=== PATIENT | male | born 2000 | race Hispanic/Latino ===

== ENCOUNTER 2021-11-03 20:35 | Emergency (ER) | payer SELFPAY ==
--- NOTE | ~2021-11-03 | CT_ITS ---
EXAMINATION: CT abdomen pelvis w con DATE: 11/03/2021 22:02 INDICATION: Mass and pain in the left inguinal region. TECHNIQUE: Computed tomography (CT) of the abdomen and pelvis was performed with 100 cc Omnipaque 350 intravenous contrast. The dose-length product was 619.70 mGy-cm. Automated exposure control and iter ative reconstruction technique were employed. COMPARISON: None. FINDINGS: Lung bases are unremarkable. Heart size normal. No significant pleural or pericardial effus ion. The liver, spleen, pancreas, adrenal glands and kidneys are unremarkable. No hydronephrosis or renal stones. Gallbladder is present. Nonobstructive bowel gas pattern. There is soft tissue in the left in guinal canal, concerning for undescended testicle with possible surrounding inflammation. There is a tiny fat-containing umbilical hernia. There are mildly prominent mesenteric lymph nodes, likely react jayson. IMPRESSION: 1. Soft tissue in the left inguinal canal with mild inflammation of the surrounding fat, concerning f or undescended testicle with possible associated inflammatory change. Reviewed, dictated and finalized at location A. TRIC METER SETTER IMPRESSION: 1. Soft tissue in the left inguinal canal with mild inflammation of the surroun ding fat, concerning for undescended testicle with possible associated inflamma tory change.
--- NOTE | ~2021-11-03 | US_ITS ---
US scrotum doppler INDICATION: Possible undescended left testicle TECHNIQUE: Testicular sonogram utilizing grayscale and color Doppler FINDINGS: The left testicle appears to be in the left inguinal canal. There is Doppler signal in the left testicle. 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 Right testicle measures 6.1 x 3.8 x 2.9 cm. The left testicle appears small measuring 2.7 x 2.3 x 1.9 cm. The right epididymis is unremarkable. Left epididymis not definitely visualized. There is no varicocele or hydrocele. IMPRESSION: 1. Probable undescended left testicle in the left inguinal canal. Reviewed, dictated and finalized at location A. OW TILE PARTITION ERECTOR
[2021-11-03 20:37] VITALS: BP 155/96; PULSE 102; RESP 16; TEMP 36.2; O2SAT 99
--- NOTE | 2021-11-03 21:02 | ED.ABDPAIN ---
HPI - Abdominal Pain General Chief Complaint: Abdominal Pain <Dann Helms MD - Last Filed: 11/04/21 12:04> Stated Complaint: LLQ pain <Dann Helms MD - Last Filed: 11/04/21 12:04> Time Seen by Provider: 11/03/21 20:45 <Dann Helms MD - Last Filed: 11/04/21 12:04> Source: patient <Dann Helms MD - Last Filed: 11/04/21 12:04> History of Present Illness HPI narrative: Patient presents with left lower quadrant abdominal pain has been present for approximately 8 to 10 days today it is more severe and has been associated with nausea and vomiting so he came to the ER for evaluation. Ports he feels a firm nodule in his groin where the pain is. Denies any diarrhea or fevers denies any prior abdominal surgeries denies any past medical history. <Dann Helms MD - Last Filed: 11/04/21 12:04> Related Data Allergies/Adverse Reactions: Allergies Allergy/AdvReac Type Severity Reaction Status Date / Time No Known Allergies Allergy Verified 11/03/21 21:23 <Dann Helms MD - Last Filed: 11/04/21 12:04> Review of Systems Review of Systems: CONSTITUTIONAL: Denies fever, chills, or sweats. EYES: Denies visual changes, redness, or discharge. ENT: Denies rhinorrhea, congestion, sore throat, or otalgia. CARDIOVASCULAR: Denies chest pain, palpitations, or edema. RESPIRATORY: Denies cough or dyspnea. GASTROINTESTINAL: Reports abdominal pain nausea and vomiting GENITOURINARY: Denies dysuria or hematuria. SKIN: Denies rash or itching. MUSCULOSKELETAL: Denies back pain, joint pain, or myalgia. NEUROLOGIC: Denies headache, numbness, dizziness, or weakness. PSYCHIATRIC: Denies anxiety or depression. <Dann Helms MD - Last Filed: 11/04/21 12:04> All systems reviewed & are unremarkable except as noted in HPI and below <Dann Helms MD - Last Filed: 11/04/21 12:04> PMFSH Past Medical History Medical History: Medical History (Updated 11/04/21 @ 02:21 by Richi Palomo MD) Patient denies medical problems <Dann Helms MD - Last Filed: 11/04/21 12:04> Surgical History Surgical History: Surgical History (Updated 11/03/21 @ 21:04 by Dann Helms MD) No pertinent past surgical history <Dann Helms MD - Last Filed: 11/04/21 12:04> Exam Narrative: GENERAL: Well-appearing, well-nourished, and in no acute distress. HEAD: Normocephalic, atraumatic. EYES: PERRLA and EOMI. ENT: Nares clear, no rhinorrhea or epistaxis. Mucous membranes moist. NECK: Supple. No masses. No JVD ABDOMEN: Soft, nontender, nondistended, normal active bowel sounds. : Tender nodule in his inguinal area nonreducible EXTREMITIES: Normal range of motion. No edema. SKIN: Warm, dry, no rash. NEURO: No focal deficits. Alert and oriented x3. PSYCH: Normal mood and affect. <Dann Helms MD - Last Filed: 11/04/21 12:04> Course Reevaluation(s) Reevaluation #1: Patient reports history of undescended testicle on the left side and he is never felt to testicles inside his scrotum in the entirety of his life. Ultrasound shows no evidence of torsion. Discussed case with urology, Dr. Crooks, who recommends patient be placed on oral antibiotics as well as oral anti-inflammatories. He also recommend adding on a urine culture. <Richi Palomo MD - Last Filed: 11/04/21 02:23> Date: 11/04/21 <Richi Palomo MD - Last Filed: 11/04/21 02:23> Time: 02:15 <Richi Palomo MD - Last Filed: 11/04/21 02:23> Consultations Consultation #1: Patient signed out to Dr. Palomo pending CT imaging for final disposition <Dann Helms MD - Last Filed: 11/04/21 12:04> Date: 11/03/21 <Dann Helms MD - Last Filed: 11/04/21 12:04> Time: 21:52 <Dann Helms MD - Last Filed: 11/04/21 12:04> Vital Signs Vital signs: Vital Signs Temperature 36.2 C L 11/03/21 20:37 Pulse Rate 102 H 11/03/21 20:37 Respiratory Rate
[2021-11-03] MEDS: SODIUM CHLORIDE 0.9% IV 1,000 ML 999 ML IV CONT (21:24)
[2021-11-03] MEDS: MORPHINE SULFATE (*CRX) 4 MG/ML INJ IV PUSH (21:25)
[2021-11-03] MEDS: ONDANSETRON INJ 4 MG/2 ML VIAL IV PUSH (21:26)
[2021-11-03 21:28] LABS: Basophils Percent Auto 0.4 % (0.2-1.2); Eosinophils Absolute Auto 0.4 K/mm3 (0-0.3); Eosinophils Percent Auto 4.2 % (0-4.4); Hematocrit 43.1 % (42.0-52.0); Hemoglobin 14.7 g/dL (14.0-18.0); Immature Granulocyte Absolute 0.06 K/mm3 (0.00-0.031); Immature Granulocyte Percent A 0.6 % (0-0.5); Lymphocytes Absolute Auto 3.27 K/mm3 (0.9-3.2); Lymphocytes Percent Auto 31.5 % (18.3-44.2); Mean Corpuscular HGB Conc 34.1 g/dl (32-36); Mean Corpuscular Hemoglobin 31.9 pg (26-34); Mean Corpuscular Volume 93.5 fl (80-100); Mean Platelet Volume 10.2 fl (7.4-10.4); Monocytes Absolute Auto 0.9 K/mm3 (0.1-0.6); Monocytes Percent Auto 8.6 % (2.6-8.5); Neutrophils Absolute Auto 5.7 K/mm3 (1.3-6.7); Neutrophils Percent Auto 54.7 % (45.5-73.1); Platelet Count Result 298 k/mm3 (150-375); Red Blood Count 4.61 M/mm3 (4.6-6.20); Red Cell Distribution Width 12.5 % (11.5-14.5); White Blood Count 10.4 K/mm3 (4.5-10.0)
[2021-11-03 21:38] LABS: Lactic Acid Reflex 1.1 mmol/L (0.7-2.1)
[2021-11-03 21:42] LABS: Alanine Aminotransferase 40 U/L (4-50); Albumin Level 4.9 g/dL (3.5-5.1); Alkaline Phosphatase 96 U/L (38-126); Anion Gap 11 mmol/L (8-16); Aspartate Amino Transferase 39 U/L (17-59); Bilirubin,Total 0.3 mg/dL (0.2-1.3); Blood Urea Nitrogen 17 mg/dL (9-20); Carbon Dioxide 24 mmol/L (22-30); Chloride 106 mmol/L (98-107); Estimated CRCL calculation 85 ml/min; Estimated Glomerular Filt Rate > 60; Glucose 103 mg/dL (65-110); Lipase 124 U/L (23-300); Potassium 3.6 mmol/L (3.4-5.0); Sodium 141 mmol/L (137-145)
[2021-11-03 21:48] LABS: Add Urine Microscopic? YES; Appearance Urine Clear (Clear); Bilirubin Urine Negative (Negative); Blood Urine Negative (Negative); Color Urine Colorless (Yellow); Glucose Urine UA Negative (Negative); Ketones Urine Negative (Negative); Leukocyte Esterase Ur 2+ LEU/UL (Negative); Nitrate Urine Negative (Negative); Protein Urine Negative (Negative); RBC Urine 0-2 /hpf (0-2); Specific Grav Ur 1.006 (1.001-1.035); Urobilinogen Urine Negative mg/dL (<2.0); WBC Urine 31-50 /hpf
[2021-11-03 23:00] VITALS: BP 130/75; PULSE 70; RESP 18; O2SAT 99
[2021-11-04 01:16] VITALS: BP 136/81; PULSE 75; RESP 18; O2SAT 99
[2021-11-04 02:30] VITALS: BP 111/65; PULSE 72; RESP 16; TEMP 36.6; O2SAT 99
== END 2021-11-04 02:49 | disposition home or self-care (01) ==
PROVIDERS: Emergency Provider Emergency Medicine
DX: Q53.10 Unspecified undescended testicle, unilateral (principal); K40.90 Unilateral inguinal hernia, without obstruction or gangrene, not specified as recurrent; R11.2 Nausea with vomiting, unspecified
CPT/HCPCS: 36415; 74177; 76870; 80053; 81001; 83605; 83690; 85025; 87086; 93976; 96361; 96374; 96375; 99284; J2270; J2405; J7030; Q9967

== ENCOUNTER → 2021-11-21 00:29 | Outpatient (CLI) | payer SELFPAY ==
[2021-11-21 11:15] LABS: SARS-CoV-2 RNA PCR Negative
== END ==
PROVIDERS: Visit Provider Urology
DX: Z01.812 Encounter for preprocedural laboratory examination (principal); Z20.822 Contact with and (suspected) exposure to COVID-19
CPT/HCPCS: C9803; U0003; U0005

== ENCOUNTER 2021-11-23 02:23 | Day surgery (SDC) | payer SELFPAY ==
--- NOTE | 2021-11-21 09:56 | PC.NURSE ---
Report to the Outpatient Waiting Room, entrance under the green pavilion located off [facility], at time 1100 on date ___11/23/21/____. OR Time: ___1:00 PM . - You and your visitor will be asked a series of questions to screen for COVID 19 for your protection. - A mask is required within the hospital. Preoperative COVID Testing Requirements: No COVID Test needed if: (proof is required; if not received patient will have Rapid Test prior to entry) - Patient has received COVID Vaccine at least 14 days prior to procedure date or - Patient has positive COVID test result within last 90 days of surgery date. COVID Test needed if above criteria is not met If not COVID vaccinated a COVID test must be conducted within 72 hours of surgery and patient is asked to isolate self from time of testing until procedure. You will go to the [facility] for your COVID testing. The [facility] [facility] site is located at the corner of [address] [facility]. You will only be called if COVID results are positive and your surgeon may reschedule your elective surgery date. Patients may have clear liquids (water, carbonated beverages, clear teas, apple juice) until 3 hours prior to surgery with a maximum of 20 ounces. - No food from midnight until time of surgery - Take the following medications with a SIP of water the morning of surgery: __NONE Medications to discontinue per physician NONE Date to take last dose Please no make-up, nail fijian, hairspray, perfume, deodorant, or body powder the day of surgery. No jewelry (including any body piercings) or valuables the day of surgery, leave them at home. Please take a shower or bath the night before, or the morning of, surgery with an antibacterial soap. Wear comfortable, loose fitting clothing. Children are encouraged to wear pajamas. - Jewelry must be removed prior to entering the operating room. Rings and piercings that are not removed may be cut off. - The hospital will not accept responsibility for valuables. - Please leave all valuables, including medications, at home the day of surgery. If you are going home after surgery, a licensed hazmat cdl a driver must drive you home. - NO public transportation without another adult. - We recommend that an adult stay with you for 24 hours following discharge. - We also recommend that you do not drive, make important decision, drink alcoholic beverages, or take any drugs that were not prescribed by your health care provider for at least 24 hours after your discharge time. One visitor will be allowed to accompany the patient into the hospital. Patients visitor will be instructed to remain with patient at all times or leave the building. We will allow the visitor to come back to the postoperative area when patient is ready. Follow any additional instructions given to you from your surgeon. VERBAL AND WRITTEN instructions given to _UNCLE LAITH CHAPMAN AND PATIENT and asked if any additional questions and then verbalized understanding. Patient advised to call surgeon office or pre surgery nurse liaison [phone] if any additional questions.
[2021-11-21 10:13] VITALS: BMI 29.0
[2021-11-21 10:14] VITALS: BP 124/71; PULSE 78; RESP 18; TEMP 37.2; O2SAT 99
[2021-11-23] VITALS (9 sets, daily range): BP systolic 111–152; BP diastolic 51–87; PULSE 65–93; RESP 12–18; TEMP 37.2; O2SAT 98–100
--- NOTE | 2021-11-23 06:33 | WPDHPUPDATE1 ---
History and Physical Update Update Date/Time: 11/23/21 06:33 History and Physical has been reviewed, including an updated exam of the patient. There are NO changes in the patient's condition. Risks, benefits, and alternatives have been discussed and questions answered. Patient agrees to proceed with procedure.
--- NOTE | 2021-11-23 11:10 | P.PNAN_ITS ---
Anes - Initial Pre Proc Eval Procedure: Operation Date: 11/23/21 13:00 Proposed Procedures p Left Orchiectomy, Inguinal Approach - Eliel Mendes MD Date/Time: 11/23/21 11:10 Surgeon: Eliel Mendes MD Pre Op Diagnosis: undescended left testicle Patient Data Age: 21 Gender: M Height: 1.73 m Weight: 86.7 kg Last Vital Signs Temp 37.2 C 11/21/21 10:14 Pulse 78 11/21/21 10:14 Resp 18 11/21/21 10:14 BP 124/71 11/21/21 10:14 Pulse Ox 99 11/21/21 10:14 Allergies Allergy/AdvReac Type Severity Reaction Status Date / Time No Known Allergies Allergy Verified 11/21/21 09:38 Home Medications Medication Instructions Recorded Confirmed Type No Home Medications 11/21/21 11/21/21 History Patient hx anesthesia problems: none Family hx anesthesia problems: none Results Review: All pre-operative results and documents have been reviewed as part of the pre-operative evaluation. [facility] Past Medical History Medical History (Updated 11/05/21 @ 00:00 by Noreen Laws) Patient denies medical problems Surgical History Surgical History (Updated 11/03/21 @ 21:04 by Dann Helms MD) No pertinent past surgical history Social History Social History Smoking status: Never smoker Alcohol intake: current Alcohol use details: ONE DRINK PER MONTH Living arrangements: with family Spiritual care concerns: No Anes - Eval Final PreProcedure Day of Procedure 11/23/21 11:10 Patient weight: overweight Heart: regular rate and rhythm Lungs: clear to auscultation and normal air movement Airway: Mallampati scale class II Neurological: alert and oriented Last oral intake: >/= 8 hours ASA classification: I Emergent: no Anesthetic plan: proceed Anesthesia type and monitoring: general LMA and standard monitoring Results Review: All pre-operative results and documents have been reviewed as part of the pre-operative evaluation. Informed Consent: The patient's anesthetic plan and its attendant risks and benefits were discussed with the patient/family/POA. Questions were solicited and answers provided to the satisfaction of the patient/family/POA.
[2021-11-23] MEDS: LACTATED RINGERS 1,000 ML 30 ML IV CONT ×2 (11:15→14:29)
[2021-11-23] MEDS: ceFAZolin 2 GM/D5W 50 ML 2 GM/50 ML BAG IVPB (12:58)
--- NOTE | 2021-11-23 13:44 | W.PM.PROC2 ---
Procedure Note - Detailed Date of Procedure 11/23/21 Pre-op Diagnosis Undescended left testicle Post-op Diagnosis Same Procedure Performed Left inguinal orchiectomy Surgeon Eliel Mendes MD Anesthesia General Description of Procedure Patient is brought to the operative suite where he was prepped and draped in routine sterile fashion while in a supine position. Short horizontal incisions made overlying the lower aspect of the left inguinal canal. Dissection is carried out through Julia's fascia. I find the left testicle just outside the left external inguinal ring. I did not have to incise the fascia of the external oblique. The testicle was dissected using electrocautery so as to skeletonize the spermatic cord. The spermatic cord was then divided and transected. The spermatic cord and secured both with a 0 silk suture ligature followed by 0 silk free tie. Incision was irrigated with saline. 0.25% Marcaine injected in the incision in below Julia's fascia. Subcu tissues closed with a running 3-0 plain and skin is closed with a 4-0 Monocryl. Blood loss was 10 cc. Patient was taken recovery room good condition Estimated Blood Loss 0 Drains No Packing No Pathology Yes Complications No immediate complications Condition Stable Disposition PACU
--- NOTE | 2021-11-23 14:44 | SUR.PHASEI ---
1444: Simple mask removed.
[2021-11-23] MEDS: oxyCODONE HCL (*CRX) 5 MG TAB IR PO (15:26)
== END 2021-11-23 16:00 | disposition home or self-care (01) ==
PROVIDERS: Visit Provider Urology
PROC: (CPT 54520; principal; 2021-11-23 13:00)
DX: Q53.112 Unilateral inguinal testis (principal); N45.1 Epididymitis
CPT/HCPCS: 54520; 88305; A9270; J0690; J1100; J1170; J2250; J2405; J2704; J3010; J7120

== ENCOUNTER 2022-06-15 12:09 | Emergency (ER) | payer SELFPAY ==
[2022-06-15] VITALS (10 sets, daily range): BP systolic 162–179; BP diastolic 100–113; PULSE 97–110; RESP 16–22; O2SAT 100
--- NOTE | ~2022-06-15 | XR_ITS ---
EXAMINATION: XR chest 2V DATE: 06/15/2022 14:06 INDICATION: Hemoptysis. TECHNIQUE: Frontal and lateral views of the chest were obtained. COMPARISON: CT abdomen and pelvis 11/03/2021 FINDINGS: The chest demonstrates clear lungs without pneumonia, pleural effusion, or pneumothorax. Th e heart size is normal. IMPRESSION: 1. No acute cardiopulmonary disease. Reviewed, dictated and finalized at location A.
--- NOTE | 2022-06-15 13:32 | ECG_ITS ---
Measurements Intervals [place] Rate: 88 P: 61 OR: 120 QRS: 47 QRSD: 94 T: 48 QT: 354 QTc: 428 Interpretive Statements SINUS RHYTHM VOLTAGE CRITERIA FOR LVH [MEETS CRITERIA IN ONE OF: R(aVL), S(V1), R(V5), R(V5/V6)+S(V1)] NO PREVIOUS ECG AVAILABLE FOR COMPARISON Electronically Signed On 06-16-2022 17:36:27 CDT by Archie Maza M.D.
[2022-06-15 13:53] LABS: Basophils Percent Auto 0.5 % (0.2-1.2); Eosinophils Absolute Auto 0.1 K/mm3 (0-0.3); Eosinophils Percent Auto 0.6 % (0-4.4); Hematocrit 43.8 % (42.0-52.0); Hemoglobin 15.6 g/dL (14.0-18.0); Immature Granulocyte Absolute 0.03 K/mm3 (0.00-0.031); Immature Granulocyte Percent A 0.3 % (0-0.5); Lymphocytes Absolute Auto 1.94 K/mm3 (0.9-3.2); Lymphocytes Percent Auto 22.2 % (18.3-44.2); Mean Corpuscular HGB Conc 35.6 g/dl (32-36); Mean Corpuscular Hemoglobin 31.6 pg (26-34); Mean Corpuscular Volume 88.8 fl (80-100); Mean Platelet Volume 9.8 fl (7.4-10.4); Monocytes Absolute Auto 0.7 K/mm3 (0.1-0.6); Monocytes Percent Auto 8.2 % (2.6-8.5); Neutrophils Percent Auto 68.2 % (45.5-73.1); Platelet Count Result 279 k/mm3 (150-375); Red Blood Count 4.93 M/mm3 (4.6-6.20); Red Cell Distribution Width 11.9 % (11.5-14.5); White Blood Count 8.7 K/mm3 (4.5-10.0)
[2022-06-15 14:03] LABS: Appearance Urine Clear (Clear); Bilirubin Urine Negative (Negative); Blood Urine Negative (Negative); Color Urine Yellow (Yellow); Glucose Urine UA Negative (Negative); Ketones Urine 2+ mg/dL (Negative); Leukocyte Esterase Ur Negative LEU/UL (Negative); Nitrate Urine Negative (Negative); Protein Urine Negative (Negative); Urobilinogen Urine 0.2 mg/dL (<2.0); pH Urine 6.5 (5.0-9.0)
[2022-06-15 14:06] LABS: Alanine Aminotransferase 50 U/L (6-50); Albumin Level 5.4 g/dL (3.5-5.1); Alkaline Phosphatase 79 U/L (38-126); Anion Gap 13 mmol/L (8-16); Aspartate Amino Transferase 67 U/L (17-59); Blood Urea Nitrogen 12 mg/dL (9-20); Calcium 9.4 mg/dL (8.4-10.2); Carbon Dioxide 24 mmol/L (22-30); Chloride 100 mmol/L (98-107); Estimated CRCL calculation 115 ml/min; Estimated Glomerular Filt Rate > 60; Glucose 94 mg/dL (65-110); Lipase 61 U/L (23-300); Potassium 3.6 mmol/L (3.4-5.0); Sodium 137 mmol/L (137-145)
[2022-06-15 14:17] LABS: Troponin I < 0.012 ng/mL (0.000-0.034)
[2022-06-15 14:22] LABS: Mucus Urine Rare /lpf; RBC Urine 0-2 /hpf (0-2); Squamous Epithelial Cell Urine Rare /hpf (Few); WBC Urine 0-3 /hpf
[2022-06-15 14:23] LABS: Add Urine Microscopic? YES
[2022-06-15 14:29] LABS: Barbiturate Screen Urine Negative (Negative); Benzodiazepines Screen Urine Negative (Negative)
[2022-06-15 14:30] LABS: Cannabinoid Screen Urine Positive (Negative); Cocaine Screen Urine Negative (Negative); Methadone Screen Urine Negative (Negative); Opiate Screen Urine Negative (Negative); Phencyclidine Screen Urine Negative (Negative)
--- NOTE | 2022-06-15 14:49 | ED.GENADULT ---
HPI - General Adult General Chief complaint: Unspecified Stated complaint: spitting up blood Time Seen by Provider: 06/15/22 13:11 History of Present Illness HPI narrative: 22-year-old male presents to the emergency room for multiple medical complaints. Initially patient has been complaining of coughing up bloody sputum for 2 days. Patient also complaining of nausea, dizziness and a rash on his penis. Patient states he recently began abusing crystal meth, and noticed bloody sputum following his use. Patient is also complaining of dizziness which causes him to be nauseated. Patient denies any chest pain or shortness of breath. Related Data Allergies Allergy/AdvReac Type Severity Reaction Status Date / Time No Known Allergies Allergy Verified 11/23/21 11:21 Review of Systems Review of Systems: CONSTITUTIONAL: Denies fever, chills, or sweats. EYES: Denies visual changes, redness, or discharge. ENT: Denies rhinorrhea, congestion, sore throat, or otalgia. CARDIOVASCULAR: Denies chest pain, palpitations, or edema. RESPIRATORY: Reports cough GASTROINTESTINAL: Denies abdominal pain, nausea, vomiting, or diarrhea. GENITOURINARY: Denies dysuria or hematuria. SKIN: Denies rash or itching. MUSCULOSKELETAL: Denies back pain, joint pain, or myalgia. NEUROLOGIC: Reports dizziness PSYCHIATRIC: Denies anxiety or depression. PMFSH Past Medical History Medical History Patient denies medical problems Surgical History Surgical History No pertinent past surgical history Social History Social History Smoking status: Never smoker Alcohol intake: current Alcohol use details: ONE DRINK PER MONTH Spiritual care concerns: No Exam Narrative: GENERAL: Well-appearing, well-nourished, no physical limitations, and in no acute distress. HEAD: Normocephalic, atraumatic. EYES: Conjunctivae normal, PERRLA and EOMI. CHEST: Clear to auscultation. No respiratory distress. No wheezes rales or rhonchi. HEART: Tachycardic and regular rhythm. No murmur heard. Normal peripheral pulses. ABDOMEN: Soft, nontender, nondistended, normal active bowel sounds. : Abrasion to base of penis EXTREMITIES: Normal range of motion. No edema. No clubbing or cyanosis SKIN: Warm, dry, no rash. No noted wounds NEURO: No focal deficits. Alert and oriented x3. MAEW. CN's II-XI intact bilaterally, normal gait PSYCH: Cooperative. Normal mood and affect. Course Vital Signs Vital signs: Vital Signs Pulse Rate 110 H 06/15/22 12:23 Respiratory Rate 16 06/15/22 12:23 Blood Pressure 179/113 H 06/15/22 12:23 Pulse Oximetry 100 06/15/22 12:23 Oxygen Delivery Room Air 06/15/22 12:23 Pulse Rate 110 H 06/15/22 13:17 Respiratory Rate 21 H 06/15/22 13:17 Blood Pressure 163/100 H 06/15/22 13:17 Pulse Oximetry 100 06/15/22 13:17 Oxygen Delivery Room Air 06/15/22 12:23 Medical Decision Making Vital Signs Vital Signs: Vital Signs Pulse Rate 110 H 06/15/22 12:23 Respiratory Rate 16 06/15/22 12:23 Blood Pressure 179/113 H 06/15/22 12:23 Pulse Oximetry 100 06/15/22 12:23 Oxygen Delivery Room Air 06/15/22 12:23 Pulse Rate 110 H 06/15/22 13:17 Respiratory Rate 21 H 06/15/22 13:17 Blood Pressure 163/100 H 06/15/22 13:17 Pulse Oximetry 100 06/15/22 13:17 Oxygen Delivery Room Air 06/15/22 12:23 Lab Data Result diagrams: 06/15/22 13:44 06/15/22 13:44 Labs: Lab Results 06/15/22 06/15/22 06/15/22 Range/Units 13:44 13:44 13:49 WBC 8.7 (4.5-10.0) K/mm3 RBC 4.93 (4.6-6.20) M/mm3 Hgb 15.6 (14.0-18.0) g/dL Hct 43.8 (42.0-52.0) % MCV 88.8 (80-100) fl MCH 31.6 (26-34) pg MCHC 35.6 (32-36) g/dl RDW 11.9 (11.5-14.5) % Plt Count 279 (150-375) k/mm3 MPV 9.8 (7.
[2022-06-15 15:02] LABS: Amphetamine Screen Urine Positive (Negative)
[2022-06-15] MEDS: SODIUM CHLORIDE 0.9% IV 1,000 ML 999 ML IV CONT (15:46)
[2022-06-17 07:05] LABS: Rapid Plasma Reagin Non-Reactive (NonReactive)
== END 2022-06-15 16:58 | disposition home or self-care (01) ==
PROVIDERS: Emergency Provider Nurse Practitioner Family
DX: R04.2 Hemoptysis (principal); R42 Dizziness and giddiness; F15.10 Other stimulant abuse, uncomplicated; R94.31 Abnormal electrocardiogram [ECG] [EKG]
CPT/HCPCS: 36415; 71046; 80053; 80307; 81001; 83690; 84484; 85025; 86592; 93005; 96360; 99284; J7030

== ENCOUNTER 2022-07-07 19:47 | Emergency (ER) | payer SELFPAY ==
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
[2022-07-07 20:00] VITALS: BP 158/101; PULSE 91; RESP 14; TEMP 37.1; O2SAT 100
[2022-07-07 22:07] VITALS: BP 153/92
[2022-07-07 22:16] VITALS: BP 154/98
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
[2022-07-07] MEDS: IBUPROFEN 600 MG TABLET PO (23:46)
[2022-07-08 00:11] VITALS: BP 150/80; PULSE 78; RESP 16; O2SAT 100
== END 2022-07-08 00:12 | disposition home or self-care (01) ==
PROVIDERS: Emergency Provider Emergency Medicine
DX: S06.0X1A Concussion with loss of consciousness of 30 minutes or less, initial encounter (principal); S01.312A Laceration without foreign body of left ear, initial encounter; Y04.2XXA Assault by strike against or bumped into by another person, initial encounter
CPT/HCPCS: 70450; 72125; 99284; A9270